=== PATIENT | male | born 1960 | race African-American/Black ===

== ENCOUNTER 2018-11-15 05:04 | Inpatient (IN) | payer MEDICARE ==
[2018-11-15] MEDS ORDERED: Albuterol Sulfate 2.5 mg/0.5 ml Neb ONE (05:18)
[2018-11-15] MEDS ORDERED: Albuterol Sulfate 2.5 mg/3 ml Neb ONE ×2 (05:18→06:51)
[2018-11-15] MEDS ORDERED: Ondansetron PF 4 MG/2 ML Vial ONE (05:33)
[2018-11-15 05:39] LABS: #Eosinphils 0.3 thou/uL (0.0-0.7); #Lymphocytes 2.4 thou/uL (1.20-3.40); #Monocytes 0.9 thou/uL (0.11-0.59); #Neutrophils 4.2 thou/uL (1.40-6.50); %Basophils 0.5 % (0.0-1.0); %Eosinophils 3.9 % (0.0-10.0); %Lymphocytes 30.9 % (21.0-51.0); %Monocytes 11.1 % (0.0-10.0); %Neutrophils 53.6 % (42.0-75.0); Hemoglobin 9.9 g/dL (14.0-18.0); Mean Corpuscular HGB CONC 31.5 g/dL (32.0-36.0); Mean Corpuscular Hemoglobin 32.3 pg (27.0-31.0); Mean Platelet Volume 8.3 fL (7.4-10.4); Platelet Count 307 thou/uL (130-400); RBC Distribution Width 16.8 % (11.5-14.5); Red Blood Cell (RBC) Count 3.07 mill/uL (4.70-6.10); White Blood Cell (WBC) Count 7.8 thou/uL (4.8-10.8)
[2018-11-15 06:00] LABS: ALT (SGPT) 7 U/L (8-55); AST (SGOT) 14 U/L (5-34); Albumin 3.8 g/dL (3.5-5.0); Alkaline Phosphatase 50 U/L (40-110); Anion Gap 17 mmol/L (10-20); BUN (Urea Nitrogen) 45 mg/dL (8.4-25.7); Bilirubin, Total 0.5 mg/dL (0.2-1.2); Calc. Creatinine Clearance 0 mL/min (70-130); Calcium 8.8 mg/dL (7.8-10.44); Carbon Dioxide 24 mmol/L (22-29); Chloride 99 mmol/L (98-107); Estimated GFR-MDRD 8; Globulin 4.2 g/dL (2.4-3.5); Glucose 131 mg/dL (70-105); Potassium 4.2 mmol/L (3.5-5.1); Sodium 136 mmol/L (136-145)
[2018-11-15] MEDS ORDERED: Piperacillin/Tazobactam 4.5 GM VIAL ONE (06:46)
--- NOTE | 2018-11-15 07:11 | RAD ---
CHEST 1 VIEW: Date: 11/15/18 INDICATION: 58-year-old male with history of lung cancer. COMPARISON: Prior exam dated 02/17/17. FINDINGS: There is now complete opacification of the left hemithorax with some mass effect on the mediastinum t o the right. There is a small right pleural effusion. There is perivascular congestion involving the right lung with perihilar edema. No pneumothorax is evident. No acute osseous abnormality is evident. IMPRESSION: 1. Complete opacification of the left hemithorax with mass effect on the mediastinum to the right. F indings are suspicious for space-occupying process such as a large pleural effusion with collapse of the left lung. 2. Findings of pulmonary vascular congestion and perihilar edema involving the right lung with a sma ll right pleural effusion. Recommend correlation for any symptoms and signs of CHF. 3. Recommend consideration for CT evaluation for further characterization. POS: CHRISTOPHER
--- NOTE | 2018-11-15 08:10 | CT ---
CTA OF THE THORAX UTILIZING IV CONTRAST AND PE PROTOCOL AND 3D REFORMATTED IMAGING: INDICATION: History of lung cancer with altered mental status and weakness. FINDINGS: There is soft tissue debris versus mass involving the distal left mainstem bronchus with complete col lapse of the left lung. There is a large complex loculated left-sided pleural effusion. There is airspace consolidation within the right middle lobe. There is a small right pleural effusio n. There is hazy airspace opacity seen within the right perihilar regions suspicious for a component of perihilar edema. No definite central or segmental pulmonary embolus is grossly evident. Visualized upper abdomen reveals no acute abnormality. No suspicious osteolytic or osteoblastic lesi on is identified. IMPRESSION: 1. No central or segmental pulmonary embolus. 2. Soft tissue debris versus mass in the distal left mainstem bronchus with complete collapse of the left lung with an associated complicated and loculated large left-sided pleural effusion. 3. Airspace consolidation in the right middle lobe suspicious for pneumonia. There is small to mode rate right-sided pleural effusion. There is perihilar edema seen within the right lung. 4. Pulmonary consultation is recommended. POS: CHRISTOPHER
[2018-11-15 08:53] LABS: Troponin I 0.045 ng/mL (< 0.028)
[2018-11-15] MEDS ORDERED: Acetaminophen 650 MG Suppository PR PRN (10:24)
[2018-11-15] MEDS ORDERED: Ondansetron ODT 4 MG TAB PO PRN (10:24)
[2018-11-15] MEDS ORDERED: HYDROcodone/Acetaminophen 5/325 mg Tablet PO PRN (10:24)
[2018-11-15] MEDS ORDERED: Acetaminophen 325 MG TAB PO PRN (10:24)
[2018-11-15] MEDS ORDERED: Bisacodyl 5 MG TAB PO PRN (10:24)
[2018-11-15 12:45] LABS: Troponin I 0.039 ng/mL (< 0.028)
--- NOTE | 2018-11-15 15:50 | SS ---
DATE OF ADMISSION: 11/15/2018 DATE OF DISCHARGE: 11/15/2018 PRIMARY CARE PROVIDER: Unknown. CHIEF COMPLAINT: Weakness. HISTORY OF PRESENT ILLNESS: Mr. Killian is a pleasant 58-year-old gentleman who was seen at [facility] on November 15, 2018. The patient himself is unable to provide any significant history. Collateral history was obtained from discussion with the patient's and brother by the bedside and separately. The patient has a history of lung cancer. He also has a history of end-stage renal disease, on dialysis Tuesday, Tuesday, and Tuesday. He sees teacher home therapy, Dr. Marco A Slade. The patient reportedly received third cycle of chemotherapy recently for lung cancer at [facility]. He was last seen normal around midnight. Today morning, his attempted to wake him up for dialysis session. He was unresponsive, slumped over in his chair. He was therefore brought to the emergency room. As mentioned, the patient is unable to provide any significant history. REVIEW OF SYSTEMS: Could not be completed. PAST MEDICAL HISTORY: Lung cancer and end-stage renal disease, on hemodialysis. PAST SURGICAL HISTORY: Partial hepatectomy. SOCIAL HISTORY: No history of tobacco use, alcohol use, or recreational drug use. CODE STATUS: I discussed his code status. He is DNAR. FAMILY HISTORY: Unable to obtain. ALLERGIES: NO KNOWN DRUG ALLERGIES. CURRENT MEDICATIONS: 1. Aspirin 81 mg daily. 2. Valacyclovir 1000 mg after dialysis. 3. Dicyclomine 20 mg every 6 hours as needed. 4. Oxycodone 10 mg every 4 hours as needed. 5. Calcium acetate two capsules 3 times a day. PHYSICAL EXAMINATION: GENERAL: On examination, the patient is sleepy, but arousable, not speaking. VITAL SIGNS: Blood pressure is 82/44, pulse 84, respiratory rate 17, and oxygen saturation 91% on 4 L of oxygen. He is afebrile. EYES: No scleral icterus, no conjunctival pallor. ENT: Moist mucosal membranes. RESPIRATORY: Accessory muscles of breathing are active. Chest wall movements are absent on the left, present on the right. He has absent breath sounds on the left, bronchial breathing on the right. CARDIOVASCULAR: S1 and S2 are heard, regular. Peripheral pulses palpable. NEUROLOGIC: Full neurologic examination was not possible secondary to patient's noncooperation. There is no facial droop. Deep tendon reflexes 2+, plantars downgoing bilaterally. MUSCULOSKELETAL: The patient is moving all 4 extremities. He has bilateral lower extremity edema. SKIN: No rashes. PSYCHIATRIC: Unable to assess mood, affect, or orientation to person, place, or time. LABORATORY DATA: Mr. Killian' labs and investigations were reviewed. I reviewed his electrocardiogram which shows sinus tachycardia, no ST changes to suggest an acute coronary syndrome. I also reviewed his chest x-ray, which shows white out of the left lung. He also had CT angiogram of the chest, which did not show any evidence of central or segmental pulmonary embolus. He has soft tissue debris versus mass in the distal left mainstem bronchus with complete collapse of the left lung with a complicated and loculated large left-sided pleural effusion. He also has air space consolidation in the right middle lobe, suspicious for pneumonia. He has [id number] right-sided pleural effusion and perihilar edema within the right lung. He has normal white count, macrocytic anemia with hemoglobin 9.9, normal platelet count, normal electrolytes, elevated blood urea nitrogen of 45, elevated creatinine of 8.24, and unremarkable LFTs. BNP is elevated at 1281. Troponin I is indeterminate at 0.039. ASSESSMENT: Mr. Killian is a pleasant 58-year-old gentleman who was seen at [facility] on November 15, 2018. His problem list includes: 1. Acute metabolic encephalopathy: Likely secondary to hypoxia from left lung white out and pleural effusion. 2. Left pleural effusion: Likely malignant, given his history of lung cancer. 3. End-stage renal disease, on dialysis: He undergoes dialysis on Tuesday, Tuesday, and Tuesday. He is supposed to have dialysis today. 4. Lung cancer: He is followed up for lung cancer at [facility]. PLAN AND HOSPITAL COURSE: Mr. Killian was initially admitted to the hospital as inpatient for management of pleural effusion, end-stage renal disease, and acute metabolic encephalopathy. Following this, I saw the patient, and I had a lengthy discussion with the patient's and brother. They did not wish for any resuscitative measures. I also discussed the possibility of chest tube to drain the pleural effusion. They reported that he had it done multiple times in the past and did not wish to have it done again. I also discussed goals of care. They wanted the patient to be kept comfortable and wanted hospice care. After discussing various treatment options, the patient has been referred for inpatient hospice. The patient has been accepted for inpatient hospice and will be discharged from Hospitalist Service. Many thanks for allowing me to participate in your patient's care. Please feel free to contact me with any questions or concerns. LEVEL OF RISK: High. LEVEL OF COMPLEXITY: High. Job ID: [id number]
[2018-11-15] MEDS ORDERED: ISOVUE-370 76%-LOCM 1 ML ONE (17:46)
[2018-11-16] MEDS ORDERED: Enoxaparin Sodium 40 MG/0.4 ML SYRINGE SC SCH (09:00)
--- NOTE | 2018-11-17 08:34 | PQF ---
[employer] Reimbursement Spec Crystal Reports Winform MedardoTOREYBILLY NAM ALY [id number] GISELLE- GISELLE [id number] CLINICAL DOCUMENTATION CLARIFICATION FORM: POST DISCHARGE Addendum to original discharge summary date: ____ Late entry note date: __ DATE: 11/17/2018 ATTN: NAM ALY Please exercise your independent, professional judgment in responding to the clarification form. Clinical indicators are provided on the bottom of this form for your review Please check appropriate box(s): [ x ] Acute Respiratory Failure: [ x ] with Hypoxia[ ] with Hypercapnia [ ] Acute On Chronic Respiratory Failure: [ ] with Hypoxia [ ] with Hypercapnia [ ] Acute Respiratory Failure due to: (etiology) [ ] ARDS (Acute Respiratory Distress Syndrome) [ ] Chronic Respiratory Failure only [ ] with Hypoxia [ ] with Hypercapnia [ ] Hypoxia [ ] Other diagnosis [ ] Unable to determine For continuity of documentation, please document condition throughout progress notes and discharge summary. Thank You. CLINICAL INDICATORS - SIGNS / SYMPTOMS / LABS - Hypoxic sating-70%-ED record, 11/15, Tanesha Diaz MD - Respiratory distress-ED record, 11/15, Tanesha Diaz MD - Left pleural effusion, likely malignant-DS, 11/15, Heri Corey MD - likely from left lung white out and pleural effusion-DS, 11/15, Heri Corey MD RISK FACTORS - PMH: Lung CA- ED record, 11/15, Tanesha Diaz MD - Pneumonia-ED record, 11/15, Tanesha Diaz MD - PSH: partial hepatectomy-Short stay summary-11/15, Heri Corey MD TREATMENTS: -DuoNeb-ED record, 11/15, Tanesha Diaz MD -Albuterol sulfate.2.5mg-APR, 11/15 MTDD
--- NOTE | 2018-11-17 08:50 | PQF ---
[employer] Ingredient Scaler Crystal Reports Winform ViewerBILLY LEMA NAM ALY [id number] MARIA A DESAI [id number] CLINICAL DOCUMENTATION CLARIFICATION FORM: POST DISCHARGE Addendum to original discharge summary date: ____ Late entry note date: __ DATE: 11/17/2018 ATTN:ANM ALY Please exercise your independent, professional judgment in responding to the clarification form. Clinical indicators are provided on the bottom of this form for your review Please check appropriate box(s) to clarify if the following diagnosis has been ruled in or ruled out: Pneumonia [ x ] Ruled in diagnosis [ x ] Continue to treat [ ] Resolved [ ] Ruled out diagnosis [ ] Cannot rule out diagnosis [ ] Other diagnosis [ ] Unable to determine For continuity of documentation, please document condition throughout progress notes and discharge summary. Thank You. CLINICAL INDICATORS - SIGNS / SYMPTOMS / LABS - Pneumonia- ED record, 11/15, Emily Eric MD - Temp:97.7, Pulse:125, RR:35-ED record, 11/15, Emily Eric MD - WBC: 7.8- Laboratory, 11/15 - Complete opacification of the hemithorax with mass effect on the mediastinum to the right-Chest X-ray-11/15 - Pulmonary vascular congestion and peripheral edema involving the right lung with pleural effusion-Chest X-ray-11/15 - Air space consolidation in the right middle lobe , suspicious for pneumonia- Short stay summary, 11/15, Heri Corey MD RISK FACTORS - PMH: Lung cancer and ESRD-Short stay summary, 11/15, Heri Corey MD - Accessory muscle of breathing are active-Short stay summary, 11/15, Heri Corey MD TREATMENTS -Vancomycin.IV-APR, 11/15 (This form is maintained as a part of the permanent medical record) [employer]ient [employer]er Crystal Reports Winform [id number] [employer] All Rights Reserved Nicki Gomez [not provided] [not provided] MTDD
== END 2018-11-15 13:39 | disposition hospice, inpatient (51) | DRG 180 ==
LOC: ERS 05:04 → EDBD 05:04 → ERHOLD 10:47
PROVIDERS: ADMIT Hospitalist; ATTEND Hospitalist
DX: C34.90 Malignant neoplasm of unspecified part of unspecified bronchus or lung (principal); N18.6 End stage renal disease; G93.41 Metabolic encephalopathy; J96.01 Acute respiratory failure with hypoxia; J18.9 Pneumonia, unspecified organism; J91.0 Malignant pleural effusion; Z51.5 Encounter for palliative care; D53.9 Nutritional anemia, unspecified; Z66 Do not resuscitate; D63.0 Anemia in neoplastic disease; Z99.2 Dependence on renal dialysis
CPT/HCPCS: 36415; 36416; 71045; 71275; 80053; 83880; 84484; 85025; 93005; 94640; 96365; 96367; J2405; J2543; J3370; J7611; J7620; Q9966

== ENCOUNTER 2018-11-15 14:03 | Inpatient (IN) | payer OTHER ==
--- NOTE | 2018-11-16 14:40 | DIS ---
DATE OF ADMISSION: 11/15/2018 DATE OF DISCHARGE: 11/15/2018 SUMMARY: TIME OF : November 15 at 15:32. HOSPITAL COURSE: The patient was admitted for end-stage renal disease with metastatic Lung cancer. The patient had severe respiratory failure. The patient 's condition on examination to the emergency room was poor and was imminent. The patient at the time indicated above. Disposition was . All the above findings were discussed with the family. No complications were reported. Job ID: [id number] [facility]
== END 2018-11-15 15:32 | disposition expired | DRG 951 ==
LOC: ONC 14:03 → SJJU 14:48 → T4-A 15:21
PROVIDERS: ADMIT Hospitalist; ATTEND Hospitalist
DX: Z51.5 Encounter for palliative care (principal); G93.41 Metabolic encephalopathy; N18.6 End stage renal disease; J96.90 Respiratory failure, unspecified, unspecified whether with hypoxia or hypercapnia; J18.9 Pneumonia, unspecified organism; C34.90 Malignant neoplasm of unspecified part of unspecified bronchus or lung; J90 Pleural effusion, not elsewhere classified; J81.1 Chronic pulmonary edema; Z66 Do not resuscitate; D64.9 Anemia, unspecified; Z99.2 Dependence on renal dialysis; Z90.49 Acquired absence of other specified parts of digestive tract; Z79.82 Long term (current) use of aspirin; Z79.899 Other long term (current) drug therapy